=== PATIENT | female | born 1955 | race Caucasian/White ===

== ENCOUNTER 2018-07-25 10:02 | Emergency (ER) | payer OTHER ==
[~2018-07-25 10:02] MED LIST: GADOBUTROL 10 ML VIAL IVP ONE
[2018-07-25 10:28] VITALS: BP 144/78
[2018-07-25] MEDS ORDERED: TDAP ADULT 0.5 ML INJ (BOOSTRIX) IM ONE (10:51)
--- NOTE | 2018-07-25 10:51 | EDPHY ---
H & P Time Seen by Provider: 07/25/18 10:35 HPI/ROS: Chief complaint: Left forearm skin tear History of present illness: 63-year-old female presents to the emergency department for left forearm skin tear. She was having an MRI performed in this region. A sticky marker was placed to [place] the site of interest and when it was removed tore the skin. Minimal pain. Minimal bleeding. She is unsure of her last tetanus shot. Smoking Status: Never smoked Physical Exam: Patient is alert, nontoxic. She has a small abrasion to the left wrist. Good hemostasis. She is moving the left upper extremity well. Radial pulse 2 +. Sensation appears intact. Constitutional: Initial Vital Signs Temperature (C) 36.5 C 07/25/18 10:25 Heart Rate 81 07/25/18 10:25 Respiratory Rate 18 07/25/18 10:25 Blood Pressure 144/78 H 07/25/18 10:25 O2 Sat (%) 92 07/25/18 10:25 O2 Delivery Mode Room Air Allergies/Adverse Reactions: Penicillins Allergy (Verified 07/25/18 10:24) Home Medications: Medication Instructions Recorded Hydroxyzine HCl 07/25/18 Methotrexate 07/25/18 Singulair 07/25/18 Xarelto 07/25/18 morphINE 07/25/18 MDM/Departure - MDM Imaging Results: Imaging Impressions Upper Extremity MRI 07/25/18 08:00 Impression: 1. At site of clinical symptomatology, no underlying soft tissue or osseous abnormality noted. 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 [facility] osteoarthritis, moderate. Comment: At the completion of the examination, the cutaneous marker and tape utilized to locate the area of clinical symptomatology was removed. The tape for the cutaneous marker was adherent to the overlying abnormal skin, with secondary loss of the dermis upon tape removal. The patient experienced significant pain and localized bleeding secondary to loss of overlying dermal tissue. Therefore, the patient was transferred to the emergency department for additional evaluation and treatment. There was no significant tissue on the tape 2 submitted to the pathology department for histologic analysis. Medications Given: Discontinued Medications Diphtheria/Tetanus/Acell Pertussis (Boostrix) 0.5 ml IM .ONCE ONE Stop: 07/25/18 10:52 Last Admin: 07/25/18 11:13 Dose: 0.5 ml ED Course/Re-evaluation: Patient seen under the supervision of my secondary supervising physician Dr. Deshawn Meadows. Patient presents for a skin tear. She does have a wound with good hemostases. It has been cleaned and dressed. Her tetanus is updated. She is discharged and asked to follow up with her primary care doctor for recheck. Return precautions are given. - Depart Disposition: Home, Routine, Self-Care Clinical Impression: Skin tear of left upper extremity Condition: Good Instructions: Skin Tear (ED), Acute Wounds (ED) Additional Instructions: Follow-up with your primary care doctor next week for recheck If symptoms worsen or new symptoms develop return to the emergency room for recheck Referrals: Doctor Not,On Staff, [Primary Care Provider] - As per Instructions [facility],. [Clinic] - As per Instructions
== END 2018-07-25 11:22 | disposition home or self-care (01) ==
DX: S51.802A Unspecified open wound of left forearm, initial encounter (principal); Z23 Encounter for immunization
CPT/HCPCS: A9585